=== PATIENT | male | born 1945 | race Caucasian/White ===

== ENCOUNTER → 2018-05-21 | Outpatient (CLI) | payer MEDICARE, OTHER | END | disposition home or self-care (01) | LOC: PCVCCLINIC 11:57 | DX: I25.10 Atherosclerotic heart disease of native coronary artery without angina pectoris (principal); I10 Essential (primary) hypertension; E78.5 Hyperlipidemia, unspecified; E11.9 Type 2 diabetes mellitus without complications; Z87.891 Personal history of nicotine dependence; Z79.899 Other long term (current) drug therapy | CPT/HCPCS: 93005; G0463 ==

== ENCOUNTER → 2018-06-11 | Outpatient (CLI) | payer MEDICARE, OTHER ==
[~2018-06-11] MED LIST: REGADENOSON 0.4 MG/5 ML DISP.SYRIN. IV ONE
--- NOTE | 2018-06-11 10:39 | PCVCIMAG ---
APPROVED REPORT Study performed: 06/11/2018 08:28:23 EXAM: Comprehensive 2D, Doppler, and color-flow Echocardiogram Patient Location: Echo lab Room #: 2Status: routine BSA: 1.95 HR: 73 bpmBP: 132/86 mmHg Rhythm: NSR with occasional PVCs Other Information Study Quality: Good Risk Factors: Cardiac Risk Factors: HTN, Hyperlipidemia, DM,prior hx smoking Indications Pre-Op Diabetes Dyspnea CAD Hypertension/HDD 2D Dimensions LVEF(%): 74.24 (>50%) IVSd: 8.53 (7-11mm)LVOT Diam: 22.45 (18-24mm) LVDd: 41.67 mm PWd: 9.79 (7-11mm)Ascending Ao: 29.60 (22-36mm) LVDs: 23.86 (25-40mm) Left Atrium: 31.34 (27-40mm) Aortic Root: 31.61 mm LV Single Plane 4CH: 55.54 % LV Single Plane 2CH: 56.03 %Mcdaniel's LVEF: 55.78 % Biplane EF: 55.4 % Volumes Left Atrial Volume (Systole) Single Plane 4CH: 41.75 mLSingle Plane 2CH: 60.59 mL Biplane LA Volume: 53.00 mLLA ESV Index: 27.00 mL/m2 Aortic Valve AoV Peak Zelalem.: 1.16 m/s AO Peak Gr.: 5.58 mmHgLVOT Max P.22 mmHg LVOT Max V: 0.87 m/s KAMAR Vmax: 2.95 cm2 Mitral Valve E/A Ratio: 0.6 MV Decel. Time: 242.93 ms MV E Max Zelalem.: 0.50 m/s MV A Zelalem.: 0.80 m/s IVRT: 128.03 ms TDI E/Lateral E': 8.33E/Medial E': 10.00 Medial E' Zelalem.: 0.05 m/s Lateral E' Zelalem.: 0.06 m/s Pulmonary Valve PV Peak Zelalem.: 0.86 m/sPV Peak Gr.: 2.93 mmHg Pulmonary Vein P Vein S: 0.62 m/sP Vein A: 1.07 m/s P Vein D: 0.35 m/sP Vein A Dur.: 131.5 msec P Vein S/D Ratio: 1.77 Tricuspid Valve TR Peak Zelalem.: 2.67 m/s TR Peak Gr.: 28.46 mmHg TV Vmax: 0.48 m/sPA Pressure: 35.00 mmHg Left Ventricle The left ventricle is normal size. There is normal LV segmental wall motion. There is normal left ventricular wall thickness. Left ventricular systolic function is normal. The left ventricular ejection fraction is within the normal range. LVEF is 55-60%. Grade I - abnormal relaxation pattern. Right Ventricle The right ventricle is normal size. The right ventricular systolic function is normal. Atria The left atrium size is normal. The right atrium size is normal. Aortic Valve The aortic valve is normal in structure. No aortic regurgitation is present. There is no aortic valvular stenosis. Mitral Valve The mitral valve is normal in structure. There is no mitral valve regurgitation noted. No evidence of mitral valve stenosis. Tricuspid Valve The tricuspid valve is normal in structure. Trace to mild tricuspid regurgitation with a PA pressure of 35 mmHg. Pulmonic Valve The pulmonary valve is normal in structure. There is no pulmonic valvular regurgitation. Great Vessels The aortic root is normal in size. The ascending aorta is normal in size. Aortic arch is normal in caliber. IVC is normal in size and collapses with >50% inspiration Pericardium There is no pericardial effusion. There is no pleural effusion. <Conclusion> Left ventricular systolic function is normal. There is normal LV segmental wall motion. LVEF is 55-60%. Mild diastolic dysfunction The aortic valve is normal in structure. No aortic regurgitation or stenosis The mitral valve is normal in structure. No mitral valve regurgitation Trace to mild tricuspid regurgitation with a pulmonary artery pressure of 35 mmHg. There is no pericardial effusion.
--- NOTE | 2018-06-12 09:34 | PCVCIMAG ---
APPROVED REPORT Imaging Protocol: Rest Tc-99m/Stress Tc-99m 1 day Study performed: 06/11/2018 09:22:47 Indication: CAD, Pre Op Patient Location: Out-Patient Stress Nurse: Malu Cleaning RN NM Tech:Tomás Soto NMCLEMB Ht: 5 ft 10 in Wt: 169 lbs BSA: 1.94 m2 HR: 57 bpm BP: 153/73 mmHg BMI: 24.2 Rhythm: SB, RBBB, Bifascicular Block Medical History Medical History: Age, Hyperlipidemia, HTN, CAD, DM, Chews Tobacco Medications: ASA, Glipizide, Januvia, Metformin, Metoprolol, Simvastatin Allergies: No known drug allergies Pretest Chest Pain Characteristics: No chest pain Exercise History: Sedentary Physical Disabilities: Knees Meds Held (24 hrs): Metoprolol Resting Data Rest SPECT myocardial perfusion imaging was performed in supine position 45 minutes following the intravenous injection of 10.9 mCi of Tc-99m Sestamibi. Time of rest injection: 45 Date: 06/11/2018 Administration Route: IV Administration Site: Right AC Pharmacologic Stress Pharmacologic stress test was performed by injecting Regadenoson 0.4 mg IV push over 10-15 seconds immediately followed by the intravenous injection of 35.5 mCi of Tc-99m Sestamibi. Time of stress injection: 1020 Date: 06/11/2018 Administration Route: IV Administration Site: Right AC Gated Stress SPECT was performed 45 minutes after stress injection. The images were gated to evaluate regional wall motion and calculate left ventricular ejection fraction. Stress Test Details Stress Test: Pharmacologic stress testing performed using 0.4 mg of regadenoson per 5 mL given IV over 10 seconds. Reason for pharmacologic stress test: physical limitation. HRMax Heart Rate (APMHR): 145 bpm Resting HR: 57 bpmTarget HR (85% APMHR): 123 bpm Max HR Achieved: 98 bpm % of APMHR: 67 Recovery HR: 85 bpm BP Resting BP: 153/73 mmHg Recovery BP: 136/65 mmHg ECG Resting ECG: Sinus Rhythm, RBBB, Bifascicular Block Stress ECG: Sinus Rhythm, RBBB, Bifascicular Block ST Change: None Maximum ST Deviation: 0 mm Arrhythmia: PVC's (rare) Recovery ECG: Sinus Rhythm, RBBB, Bifascicular Block Recovery ST Change: None Recovery ST Deviation: 0 mm Recovery Arrhythmia: None Clinical Reason for Termination: Completed protocol Stress Symptoms: Nausea Symptoms resolved during recovery. Stress ECG Conclusion ECG: Non-ischemic Clinical: Non-ischemic Study Quality Study: Good Study Data Post stress, the left ventricular ejection was 74%.. SSS: 0 SRS: 0 SDS: 0 TID = 1.00. Perfusion No evidence of stress induced ischemia or prior myocardial infarction. Wall Motion Normal left ventricular size and function with no regional wall motion abnormalities. Nuclear Conclusion No evidence of stress induced ischemia or prior myocardial infarction. Normal left ventricular size and function with no regional wall motion abnormalities. Post stress, the left ventricular ejection was 74%. No prior study available for comparison. Interpreted by: Chau Coe MD Electronically Approved: 06/11/2018 17:21:44 <Conclusion> ECG: Non-ischemic Clinical: Non-ischemic
== END | disposition home or self-care (01) ==
LOC: PCVCIMAG 13:41
PROVIDERS: ATTEND Internal Medicine
DX: Z01.818 Encounter for other preprocedural examination (principal); I07.1 Rheumatic tricuspid insufficiency; I25.10 Atherosclerotic heart disease of native coronary artery without angina pectoris; I10 Essential (primary) hypertension; E11.9 Type 2 diabetes mellitus without complications; E78.5 Hyperlipidemia, unspecified; Z87.891 Personal history of nicotine dependence
CPT/HCPCS: 78452; 93017; 93306; A9500; J2785

== ENCOUNTER → 2019-04-18 | Outpatient (CLI) | payer MEDICARE, OTHER | END | disposition home or self-care (01) | LOC: PCVCCLINIC 10:00 | PROVIDERS: ATTEND Internal Medicine | DX: I25.10 Atherosclerotic heart disease of native coronary artery without angina pectoris (principal); I63.9 Cerebral infarction, unspecified; I10 Essential (primary) hypertension; E11.9 Type 2 diabetes mellitus without complications; M19.90 Unspecified osteoarthritis, unspecified site; Z87.891 Personal history of nicotine dependence; Z79.84 Long term (current) use of oral hypoglycemic drugs | CPT/HCPCS: 93005; G0463 ==